=== PATIENT | male | born 1965 | race Caucasian/White ===

== ENCOUNTER → 2023-05-23 06:27 | Day surgery (SDC) | payer OTHER, SELFPAY | LOC: GI 06:27 | PROVIDERS: ATTENDING PHYSICIAN Internal Medicine Gastroenterology | DX: Z12.11 Encounter for screening for malignant neoplasm of colon (principal); K64.8 Other hemorrhoids; Z86.010 Personal history of colon polyps | CPT/HCPCS: G0105 ==

== ENCOUNTER → 2024-03-29 14:59 | Outpatient (REF) | payer OTHER, SELFPAY | LOC: RAD 14:59 | PROVIDERS: ATTENDING PHYSICIAN Family Medicine | DX: R10.30 Lower abdominal pain, unspecified (principal) | CPT/HCPCS: 74177; Q9967 ==

== ENCOUNTER 2024-04-05 10:22 | Emergency (ER) | payer OTHER, SELFPAY ==
[2024-04-05 10:28] VITALS: BP 133/81
--- NOTE | 2024-04-05 10:34 | ED.GENMED ---
ED Provider Triage
-
Patient seen by provider in Triage?: Seen in Triage
Attestation: A medical screening examination has been initiated by a qualified medical provider. Based on the assessment performed at this time, it has been determined that an emergent medical condition may exist and the patient has been informed
that further medical evaluation and possible additional diagnostic testing may be needed.
HPI: 58yoM here with flu-like symptoms x 1 week. C/o cough, fevers, body aches. Started having chest tightness yesterday. Seen by PCP today and diagnosed with the flu. Sent here for chest pain. Had a high calcium score 3 years ago, currently on a
statin.
GENERAL: Alert , in no apparent distress
EYE: No visual abnormalities.
NECK: Trachea midline
ENT: No visible abnormalities.
LUNGS: No acute respiratory distress
NEUROLOGICAL: Alert and oriented
SKIN: Skin intact. No visible changes.
MUSCULOSKELETAL: Moving extremities normally
PSYCH: Normal and appropriate interaction.
This is a medical evaluation conducted in person to initiate diagnostic evaluation and provide initial therapeutics. Please see further documentation by the treating clinician.
No ischemic changes on EKG. Cardiac labs and CXR ordered.
History of Present Illness
General
Chief Complaint: Chest Problem
Course
Orders/Labs/Results
Orders:
Orders
04/05/24 10:25
Electrocardiogram (*1) Urgent
Reason for Study: Chest Pain
EKG- Treatment ONCE
04/05/24 10:32
Complete Blood Count/With Diff Urgent
Comprehensive Metabolic Panel Urgent
Troponin I Urgent
CR Chest - 2 Views Urgent
Comment:
Reason For Exam: Chest tightness
Vital Signs
Initial and Last Documented VS:
Initial Vital Signs
Temp Pulse Resp BP Pulse Ox
98.4 F 65 16 133/81 98
04/05/24 10:28 04/05/24 10:28 04/05/24 10:28 04/05/24 10:28 04/05/24 10:28
Last Documented Vital Signs
Temp Pulse Resp BP Pulse Ox
98.4 F 65 16 133/81 98
04/05/24 10:28 04/05/24 10:28 04/05/24 10:28 04/05/24 10:28 04/05/24 10:28
ED Attending Note
-
Portions of this chart may have been created with voice recognition software.� Occasional wrong word or��sound alike� substitutions may have occurred due to the inherent limitations of voice recognition software.
Discharge Plan
Departure
Prescriptions:
No Action
ashwagandha extract 120 mg Capsule
120 mg PO DAILY
Ginko Biloba Tincture tincture
1 drp PO DAILY
Ginseng Tincture tincture
1 drp PO DAILY
Lion's Rolando
1 cap PO DAILY
pantoprazole [Protonix] 20 mg tablet,delayed release (DR/EC)
20 mg PO DAILY Qty: 14 0RF
Interventions
Interventions:
*Risk Screen - Suicide Last Done: 04/05/24 10:28
*Neglect/Abuse Screening Last Done: 04/05/24 10:28
Discharge Date and Time
Print Language: TAMAZIGHT
[2024-04-05 11:02] LABS: % Basophils 0.5 % (0-2); % Eosinophils 2.8 % (0-6); % Immature Granulocytes 0.3 % (0-0.5); % Lymphocytes 28.9 % (20.5-51.1); % Monocytes 15.6 % (1.7-9.3); % Neutrophils 51.9 % (42.2-75.2); Absolute Eosinophils 0.1 10^3/uL (0-0.7); Absolute Lymphocytes 1.1 10^3/uL (1.2-3.4); Absolute Monocytes 0.6 10^3/uL (0.1-0.6); Hematocrit 41.9 % (39.0-52.0); Hemoglobin 14.5 g/dL (13.0-18.0); Mean Corp Hgb Conc. 34.6 g/dL (33.0-37.0); Mean Corpuscular Hgb 30.5 pg (27.0-31.0); Mean Corpuscular Volume 88.2 fL (80.0-94.0); Nucleated Red Blood Cells % 0 % (-); Platelet Count 196 10^3/uL (130-400); Red Blood Cell Count 4.75 10^6/uL (4.70-6.10); Red Cell Dist. Width 12.3 % (11.5-14.5); White Blood Cell Count 3.9 10^3/uL (4.8-10.8)
[2024-04-05 11:12] LABS: ALT (SGPT) 23 U/L (0-50); AST (SGOT) 28 U/L (17-59); Albumin 4.5 g/dl (3.5-5.0); Alkaline Phosphatase 63 U/L (38-126); Blood Urea Nitrogen 14 mg/dl (9-20); Calcium 9.3 mg/dl (8.4-10.2); Carbon Dioxide 30 mmol/L (22-30); Chloride 100 mmol/L (98-107); Glucose 99 mg/dl (70-99); Potassium 4.3 mmol/L (3.5-5.1); Sodium 137 mmol/L (135-145); Total Bilirubin 0.9 mg/dl (0.2-1.3); Total Protein 6.9 g/dl (6.3-8.2); eGFR > 60.00
[2024-04-05 11:23] LABS: Troponin I < 0.012 ng/ml
--- NOTE | 2024-04-05 11:37 | ED.GENMED ---
Addendum entered and electronically signed by Madeline Machado PA-C 04/05/24 16:37:
ED Provider Triage
-
Patient seen by provider in Triage?: Seen in Triage
Attestation: A medical screening examination has been initiated by a qualified medical provider. Based on the assessment performed at this time, it has been determined that an emergent medical condition may exist and the patient has been informed
that further medical evaluation and possible additional diagnostic testing may be needed.
HPI: 58yoM here with flu-like symptoms x 1 week. C/o cough, fevers, body aches. Started having chest tightness yesterday. Seen by PCP today and diagnosed with the flu. Sent here for chest pain. Had a high calcium score 3 years ago, currently on a
statin.
GENERAL: Alert , in no apparent distress
EYE: No visual abnormalities.
NECK: Trachea midline
ENT: No visible abnormalities.
LUNGS: No acute respiratory distress
NEUROLOGICAL: Alert and oriented
SKIN: Skin intact. No visible changes.
MUSCULOSKELETAL: Moving extremities normally
PSYCH: Normal and appropriate interaction.
This is a medical evaluation conducted in person to initiate diagnostic evaluation and provide initial therapeutics. Please see further documentation by the treating clinician.
No ischemic changes on EKG. Cardiac labs and CXR ordered.
Original Note:
History of Present Illness
General
Chief Complaint: Chest Problem
Source: patient
Exam Limitations: none
Time Seen by Provider: 04/05/24 11:28
Nursing documentation reviewed up to this point in time: agreed with
History of Present Illness
History of Present Illness:
Patient is a 58-year male who presents to the ER for evaluation of chest pain. Patient has been sick with the flu for the past week. He woke up at about the night at 2 AM with a sharp severe left-sided chest pain which lasted 20 seconds. It
resolved on its own and he was not short of breath with it. Patient then had chest tightness 2 hours ago that resolved on its own. He went to his PCPs office and he was tested for influenza which was positive
He is asymptomatic now He reports pain is not made worse with movement, deep breath or cough.
He does not smoke. He is no cardiac history. He denies any abdominal nausea vomiting.
Review of Systems
Review of Systems
Allergies reviewed?: Yes
All Other Systems: ROS reviewed and negative except as documented in HPI and ROS
Constitutional: Reports no symptoms and other (pt has had fatigue chills this past week )
Respiratory: Reports no symptoms; Denies trouble breathing
Cardiac: Reports chest pain (left sided chest pain as documented currently resolved )
ABD/GI: Reports no symptoms
: Reports no symptoms
Musculoskeletal: Reports no symptoms
Skin: Reports no symptoms
Neurological: Reports no symptoms
Psychiatric: Reports no symptoms
Phy Exam
General Physical Exam
General Presentation: no apparent distress
General age: appears stated age
General Skin: warm and dry
General Habitus: normal
General Hydration: appears well hydrated
Cardiovascular Exam
Cardiovascular Exam: regular rate/rhythm, no murmur and normal peripheral pulses
Pulmonary Exam
Pulmonary Exam: lungs clear and no respiratory distress
Neurological Exam
Neurological Exam: alert and oriented x3
Musculoskeletal Exam
Musculoskeletal Exam: full ROM
Skin Exam
Skin Exam: normal color and warm/dry
Psychiatric Exam
Psychiatric Exam: normal mood/affect
Course
Orders/Labs/Results
Orders:
Orders
04/05/24 10:25
Electrocardiogram (*1) Urgent
Reason for Study: Chest Pain
EKG- Treatment ONCE
04/05/24 10:32
CR Chest - 2 Views Urgent
Comment:
Reason For Exam: Chest tightness
04/05/24 10:49
Complete Blood Count/With Diff Urgent
Comprehensive Metabolic Panel Urgent
Troponin I Urgent
04/05/24 11:53
Electrocardiogram (*1) Urgent
Reason for Study: Chest Pain
04/05/24 13:49
Troponin I Urgent
04/05/24 13:50
EKG- Treatment ONCE
Abnormal Lab Results
04/05/24
10:49
WBC 3.9 L 10^3/uL
(4.8-10.8)
Absolute Lymphs (auto) 1.1 L 10^3/uL
(1.2-3.4)
Monocytes % 15.6 H %
(1.7-9.3)
04/05/24 10:49
04/05/24 10:49
Vital Signs
Initial and Last Documented VS:
Initial Vital Signs
Temp Pulse Resp BP Pulse Ox
98.4 F 65 16 133/81 98
04/05/24 10:28 04/05/24 10:28 04/05/24 10:28 04/05/24 10:28 04/05/24 10:28
Last Documented Vital Signs
Temp Pulse Resp BP Pulse Ox
98.4 F 64 18 121/64 98
04/05/24 10:28 04/05/24 14:38 04/05/24 14:38 04/05/24 14:38 04/05/24 14:38
MDM/Problems Addressed
MDM/Problems Addressed:
Patient is a 58-year-old male with flu who presented with chest discomfort. As documented he had an episode of sharp chest pain this morning in the middle the night which lasted for 20 seconds. He then had an episode today which felt more like
pressure which is what prompted him to come to the ER. He was recommended by his family doctor for evaluation. He has no cardiac history he has been asymptomatic. He is in no acute distress. He has had coughing with flu and this is likely this
is muscular. He had 2 negative cardiac troponins here no acute findings on chest.
*Critical Care Note
Total Time (30-74mins, 75-104mins- exclusive of procedures): Not Applicable
ED Attending Note
-
Portions of this chart may have been created with voice recognition software.� Occasional wrong word or��sound alike� substitutions may have occurred due to the inherent limitations of voice recognition software.
Discharge Plan
Departure
Patient Disposition: Home (Routine Discharge)
Date of Disposition: 04/05/24
Time of Disposition: 15:05
Patient with high blood pressure during this ER visit?: Yes
Condition: Fair
Covid-19: Not Applicable
Discharge Problem:
Chest pain
Instructions: Chest Pain PCP Follow Up, BLOOD PRESSURE
Prescriptions:
No Action
ashwagandha extract 120 mg Capsule
120 mg PO DAILY
Ginko Biloba Tincture tincture
1 drp PO DAILY
Ginseng Tincture tincture
1 drp PO DAILY
Lion's Rolando
1 cap PO DAILY
pantoprazole [Protonix] 20 mg tablet,delayed release (DR/EC)
20 mg PO DAILY Qty: 14 0RF
Referrals:
Obi Mehta, [Family Provider] -
Activity Restrictions/Additional Instructions:
As discussed this chest pain is not caused from your heart. You had 2 negative cardiac blood test here and no acute findings on EKG. It is likely muscular from coughing. You may take Tylenol/Motrin. Stay well-hydrated. Follow-up with family
doctor the next of days and return if any worsening of symptoms.
Interventions
Interventions:
*Risk Screen - Suicide Last Done: 04/05/24 10:28
*Neglect/Abuse Screening Last Done: 04/05/24 10:28
ED- Fall Risk Assessment Last Done: 04/05/24 12:30
*ED COVID-19 Vaccine History Last Done: 04/05/24 12:30
ED- Cardiac Assessment Last Done: 04/05/24 12:30
ED- Pulmonary Assessment Last Done: 04/05/24 12:30
Discharge Date and Time
Print Language: [id number]
[2024-04-05 12:30] VITALS: BP 121/64
[2024-04-05 12:32] VITALS: BMI 27.0
[2024-04-05 13:34] VITALS: BP 111/54
[2024-04-05 14:19] LABS: Troponin I < 0.012 ng/ml
[2024-04-05 14:38] VITALS: BP 121/64
[2024-04-05] MEDS: MOTRIN 600 MG PO (15:13)
[2024-04-05 15:21] VITALS: BP 128/76
== END 2024-04-05 15:23 | disposition home or self-care (01) ==
LOC: EMR 10:22
PROVIDERS: Nurse Practitioner; Physician Assistant; EMERGENCY PHYSICIAN Emergency Medicine; FAMILY PHYSICIAN Family Medicine
DX: R07.89 Other chest pain (principal)
CPT/HCPCS: 99285; 71046; 80053; 84484; 85025; 93005

== ENCOUNTER → 2024-05-22 14:00 | Outpatient (REF) | payer OTHER, SELFPAY | LOC: HWRAD 14:00 | PROVIDERS: ATTENDING PHYSICIAN Family Medicine | DX: M54.50 Low back pain, unspecified (principal) | CPT/HCPCS: 72110 ==